=== PATIENT | male | born 1970 | race Caucasian/White ===

== ENCOUNTER 2017-09-01 22:26 | Emergency (ER) | payer OTHER ==
--- NOTE | 2017-09-01 23:01 | EDM.PDOC ---
ED HPI GENERAL MEDICAL PROBLEM - General Chief Complaint: Skin Complaint Stated Complaint: LEFT CALF BUG BITE Time Seen by Provider: 09/01/17 22:40 Source of Information: Reports: Patient History Limitations: Reports: No Limitations - History of Present Illness INITIAL COMMENTS - FREE TEXT/NARRATIVE: 47-year-old male finished a course of cephalexin 3 days ago for an inflamed cellulitic bug bite on the back of his left leg. While he was being treated he improved but now over the past 12 hours it is worsening with erythema and warmth. He has no fever. Onset: Gradual Location: Reports: Lower Extremity, Left Associated Symptoms: Reports: No Other Symptoms - Related Data Allergies Allergy/AdvReac Type Severity Reaction Status Date / Time Penicillins Allergy Cannot Verified 09/01/17 22:44 Remember Home Meds: Home Meds Losartan [Cozaar] 09/01/17 [History] NK [No Known Home Meds] 09/01/17 [History] Past Medical History - Past Health History Medical/Surgical History: Denies Medical/Surgical History Social & Family History - Tobacco Use Smoking Status *Q: Never Smoker ED ROS GENERAL - Review of Systems Review Of Systems: See Below Constitutional: Denies: Fever, Chills, Malaise Respiratory: Denies: Shortness of Breath GI/Abdominal: Denies: Nausea, Vomiting Neurological: Reports: No Symptoms ED EXAM, SKIN/RASH Exam: See Below Exam Limited By: No Limitations General Appearance: Alert, No Apparent Distress Respiratory/Chest: No Respiratory Distress Extremities: Other (Exam is otherwise limited to the left leg. The patient has a dry, scabbed healing bug bite approximately 1 cm across with surrounding blanching macular erythema which is warm to the touch. No fluctuance.) Course - Vital Signs Last Recorded V/S: Last Vital Signs Temp 96.2 F 09/01/17 22:48 Pulse 107 H 09/01/17 22:48 Resp 16 09/01/17 22:48 BP 176/106 H 09/01/17 22:48 Pulse Ox 96 09/01/17 22:48 - Re-Assessments/Exams Free Text/Narrative Re-Assessment/Exam: 09/01/17 22:59 patient will be placed on 300 mg of clindamycin 3 times a day. He is allergic to penicillin. Warm compresses may help, activity as tolerated and recheck in 48 -72 hours if not improving. Departure - Departure Time of Disposition: 23:10 Disposition: Home, Self-Care 01 Condition: Good Clinical Impression: Cellulitis Qualifiers: Site of cellulitis: extremity Site of cellulitis of extremity: lower extremity Laterality: left Qualified Code(s): L03.116 - Cellulitis of left lower limb - Discharge Information Instructions: Cellulitis, Adult, [id number] Referrals: PCP,None [Primary Care Provider] - Forms: ED Department Discharge Care Plan Goals: Take antibiotic as prescribed for at least 7 days. Warm compresses to the area may help, ibuprofen as needed. Recheck in 2-3 days if not improving. Return sooner if worsening despite treatment.
== END 2017-09-01 23:10 | disposition home or self-care (01) ==
LOC: JP.ED 22:26
DX: L03.116 Cellulitis of left lower limb (principal); Z88.0 Allergy status to penicillin
CPT/HCPCS: 99282